=== PATIENT | female | born 1945 | race Caucasian/White ===

== ENCOUNTER 2022-03-31 03:23 | Emergency (ER) | payer MEDICARE ==
--- NOTE | 2022-03-31 03:48 | ED Physician Documentation ---
PD HPI ABD PAIN - Stated complaint Stated Complaint: ABD PX - Chief complaint Chief Complaint: Abd Pain - History obtained from History obtained from: Patient - History of Present Illness Timing - onset: Enter time (19:00), Last night (03/30/22) Timing - details: Abrupt onset Pain level now: 8 Quality: Pain Location: RUQ, Epigastric Radiation: Other (no radiation) Improved by: Other (no ameliorating factors) Worsened by: Other (no exacerbating factors) Associated symptoms: No: Fever, Nausea, Vomiting, Diarrhea, Constipation Similar symptoms before: Has not had sx before Recently seen: Not recently seen Review of Systems Constitutional: denies: Fever, Chills, Sweats Cardiac: reports: Reviewed and negative Respiratory: reports: Reviewed and negative GI: reports: Abdominal Pain, Abdominal Swelling (sensation of focal rigid ity/swelling across upper abdomen). denies: Nausea, Vomiting, Constipation, Diarrhea : denies: Dysuria, Frequency Skin: denies: Rash Musculoskeletal: reports: Reviewed and negative PD PAST MEDICAL HISTORY - Past Medical History Past Medical History: Yes Cardiovascular: Hypertension, High cholesterol Endocrine/Autoimmune: Type 2 diabetes - Past Surgical History Past Surgical History: Yes General: Appendectomy - Present Medications Home Medications: Ambulatory Orders Medication Instructions Recorded Confirmed Citalopram [CeleXA] 10 mg PO DAILY 03/31/22 03/31/22 Gabapentin [Neurontin] 300 mg PO DAILY 03/31/22 03/31/22 Glipizide [Glipizide Xl] 5 mg PO DAILY 03/31/22 03/31/22 Lisinopril/Hydrochlorothiazide 1 tab PO DAILY 03/31/22 03/31/22 [Zestoretic 20-12.5 mg Tablet] Metoprolol Succinate [Toprol Xl] 50 mg PO DAILY 03/31/22 03/31/22 QUEtiapine [SEROquel] 25 mg PO DAILY 03/31/22 03/31/22 Simvastatin [Zocor] 40 mg PO DAILY 03/31/22 03/31/22 oxyCODONE [Roxicodone] 5 - 10 mg PO Q6H PRN #14 tablet 03/31/22 - Allergies Allergies/Adverse Reactions: Allergies Allergy/AdvReac Type Severity Reaction Status Date / Time Penicillins Allergy Unknown Verified 03/31/22 03:33 - Living Situation Living Arrangement: reports: At home PD ED PE NORMAL - Vitals Vital signs reviewed: Yes - General General: Alert and oriented X 3, Well developed/nourished, Other (obvious painful distress) - HEENT HEENT: Moist mucous membranes - Cardiac Cardiac: RRR, No murmur - Respiratory Respiratory: No respiratory distress, Clear bilaterally - Abdomen Abdomen: Soft, Non distended, Other (mild TTP RUQ and epigastrium without rebound or guarding) - Back Back: No CVA TTP - Derm Derm: Normal color, Warm and dry, No rash Results - Vitals Vitals: Oxygen O2 Source Room air - EKG (time done) No standard instances Rate: Rate (enter#) (79) Rhythm: NSR [place]: Normal Intervals: Normal [place], RBBB QRS: Normal Ischemia: Normal ST segments - Labs Labs: Laboratory Tests 03/31/22 03/31/22 04:15 04:15 WBC 10.0 RBC 4.21 Hgb 13.2 Hct 40.1 MCV 95.2 MCH 31.4 H MCHC 32.9 RDW 13.0 Plt Count 193 MPV 10.1 Neut # (Auto) 8.1 H Lymph # (Auto) 1.0 L [place] # (Auto) 0.8 Eos # (Auto) 0.1 Baso # (Auto) 0.0 Absolute Nucleated RBC 0.00 Nucleated RBC % 0.0 Sodium 138 Potassium 4.5 Chloride 103 Carbon Dioxide 24 Anion Gap 11.0 BUN 20 Creatinine 0.9 Estimated GFR (MDRD) 61 L Glucose 194 H Calcium 10.2 Total Bilirubin 0.8 AST 19 ALT 16 Alkaline Phosphatase 50 Total Protein 7.3 Albumin 4.4 Globulin 2.9 Albumin/Globulin Ratio 1.5 Lipase 32 - Rads (name of study) RUQ US Radiology: Prelim report reviewed, See rad report PD MEDICAL DECISION MAKING - ED course Complexity details: reviewed results, re-evaluated patient, considered differential, d/w patient ED course: Presentation and test results are all consistent with biliary colic. She is afebrile and blood tests with unremarkable results including WBC and LFTs. Her US shows two gallstones, measuring up to 2cm diameter, with borderline GB wall thickness. She is in obvious discomfort on initial presentation but repeatedly expresses reluctance to receive any narcotics due to concern for side effect (such as N/V, drowsiness). We discussed non-narcotic options and she is given 15mg IV toradol, but she appears to be in discomfort that would not be adequately controlled with non-narcotics. I was able to eventually agree to 2mg IV morphine IV, and when she did not have any improvement with this, she is then given 4mg IV morphine. Finally, as she had no improvement with these medications, she was finally agreeable to IV dilaudid. She is given 1 mg IV dilaudid and reports excellent relief of her pain with this. She is AAOx3 on reevaluation, NAD, results reviewed, diagnosis of gallstones/biliary colic discussed, return precautions discussed. I advised her to follow up with a general surgeon as soon as can be arranged, and prescription for percocet is provided. At this time, no indications for admission or further observation, given that she is afebrile with unremarkable blood tests (including WBC and LFTs) and symptoms are controlled without sedation. Departure - Departure Disposition: 01 Home, Self Care Clinical Impression: Biliary colic Condition: Good Instructions: ED Gallstone W Biliary Colic Follow-Up: Rosa Wilkinson MD [Provider Admit Priv/Credential] - Prescriptions: oxyCODONE [Roxicodone] 5 - 10 mg PO Q6H PRN #14 tablet PRN Reason: Pain Comments: The ultrasound shows that you have two very large gallstones; these are almost certainly the cause of your abdominal pain. Your blood tests are unremarkable a nd the pain was controlled with a few doses of pain medication in the ER. At this point it is safe and appropriate to send you home, but you should follow up with a general surgeon. You can contact the surgeon that evaluated you for this problem before and see if they will evaluate you or if you need a new referral. If you need a new referral, you can contact your primary care provider for that. You can also try surgeon web content director for [facility], information is provided on these discharge sheets (if you contact Dr. Wilkinson's office, make sure that they take your insurance and ask if they require referral from your primary care provider). Discharge Date/Time: 03/31/22 10:33
[2022-03-31] MEDS ORDERED: MORPHINE 2 MG/ML CARPUJECT IVP STA ×2 (04:11→04:38)
[2022-03-31 04:21] LABS: BASOPHILS % (AUTO) 0.4 %; EOSINOPHILS # (AUTO) 0.1 10^3/uL (0.0-0.7); EOSINOPHILS % (AUTO) 0.9 %; HCT - HEMATOCRIT 40.1 % (37.0-47.0); HGB - HEMOGLOBIN 13.2 g/dL (12.0-16.0); LYMPHOCYTES % (AUTO) 9.7 %; MEAN CORPUSCULAR HEMOGLOBIN 31.4 pg (27.0-31.0); MEAN CORPUSCULAR HGB CONC 32.9 g/dL (32.0-36.0); MEAN CORPUSCULAR VOLUME 95.2 fL (81.0-99.0); MEAN PLATELET VOLUME 10.1 fL (7.9-10.8); MONOCYTES # (AUTO) 0.8 10^3/uL (0.0-1.0); MONOCYTES % (AUTO) 7.6 %; NEUTROPHILS # (AUTO) 8.1 10^3/uL (1.5-6.6); NEUTROPHILS % (AUTO) 80.9 %; PLT - PLATELET COUNT 193 10^3/uL (130-450); RED BLOOD COUNT 4.21 10^6/uL (4.20-5.40)
[2022-03-31 04:33] LABS: ALBUMIN 4.4 g/dL (3.2-5.5); ALBUMIN/GLOBULIN RATIO 1.5 (1.0-2.2); BILIRUBIN,TOTAL 0.8 mg/dL (0.2-1.0); CALCIUM 10.2 mg/dL (8.5-10.3); CREATININE 0.9 mg/dL (0.4-1.0); POTASSIUM 4.5 mmol/L (3.5-5.0); TOTAL PROTEIN 7.3 g/dL (6.7-8.2)
[2022-03-31 07:04] VITALS: BP 152/68
[2022-03-31] MEDS ORDERED: HYDROmorphone 1 MG/ML CARPUJECT IVP STA (07:49)
[2022-03-31] MEDS ORDERED: KETOROLAC 15 MG/ML VIAL IVP STA (08:08)
--- NOTE | 2022-03-31 10:11 | Ultrasound Report ---
PROCEDURE: Abdomen Limited INDICATIONS: RUQ pain TECHNIQUE: Real-time focused scanning was performed of the abdomen, with image documentation. COMPARISON: None FINDINGS: The liver is normal size and demonstrates mild, slightly heterogeneous hyperechogenicity t hroughout. No focal masses. The gallbladder is distended and contains nonmobile stones in the neck, one measuring up to 2.0 cm. T he wall is at the upper limits of normal in thickness measuring 3.1 mm. No discrete pericholecystic f luid seen. Negative sonographic Quinteros's per the technologist. No intrahepatic biliary dilatation. The visible portion of the common duct is normal caliber at 6 mm. The pancreas is normal. The distal pancreas is not seen. The right kidney is normal length. There is no hydronephrosis. IMPRESSION: 1. Cholelithiasis and equivocal findings for acute cholecystitis given borderline wall thickening. HI DA scan could be performed for further evaluation. 2. Mild hepatic steatosis. 3. Final interpretation concordant with preliminary report. Reviewed by: Angella Godoy MD on 03/31/2022 10:10 AM PDT Approved by: Angella Gdooy MD on 03/31/2022 10:10 AM PDT Station ID: [id number]
== END 2022-03-31 10:33 | disposition home or self-care (01) ==
LOC: ED 03:23
DX: K80.50 Calculus of bile duct without cholangitis or cholecystitis without obstruction (principal); I10 Essential (primary) hypertension; E11.9 Type 2 diabetes mellitus without complications; Z79.84 Long term (current) use of oral hypoglycemic drugs
CPT/HCPCS: 36415; 76705; 80053; 83690; 85025; 93005; 96374; 96375; 99283; 99284; J1170

== ENCOUNTER 2022-04-02 23:59 | Outpatient (CLI) | payer MEDICARE | END 2022-04-03 | disposition EMS.NT | LOC: EMS 23:59 | DX: R10.9 Unspecified abdominal pain (principal) ==

== ENCOUNTER 2022-04-05 05:05 | Outpatient (CLI) | payer MEDICARE | END 2022-04-05 05:06 | disposition EMS.NT | LOC: EMS 05:05 | DX: Z03.89 Encounter for observation for other suspected diseases and conditions ruled out (principal) ==

== ENCOUNTER 2023-09-01 13:06 | Outpatient (CLI) | payer MEDICARE | END 2023-09-01 13:07 | disposition critical access hospital (66) | LOC: EMS 13:06 | DX: R07.89 Other chest pain (principal); M54.6 Pain in thoracic spine; R20.8 Other disturbances of skin sensation; I44.0 Atrioventricular block, first degree; I45.10 Unspecified right bundle-branch block | CPT/HCPCS: A0425; A0427 ==

== ENCOUNTER 2023-09-01 13:32 | Emergency (ER) | payer MEDICARE ==
--- NOTE | 2023-09-01 13:48 | ED Physician Documentation ---
PD HPI CHEST PAIN - Stated complaint Stated Complaint: GLF/CHEST PX - Chief complaint Chief Complaint: Cardiac - History obtained from History obtained from: Patient, EMS - History of Present Illness Timing - details: Gradual onset Pain level max: 5 Pain level now: 0 Quality: Indigestion (burning) Location: Substernal Improved by: Antacids Worsened by: No: Exertion, Inspiration, Eating, Movement, Palpation, Position Associated symptoms: No: Shortness of air, Diaphoresis, Nausea, Vomiting, Feeling faint / dizzy, General Weakness, Palpitations, Cough Recently seen: Not recently seen - Additional information Additional information: Patient is a 78-year-old female brought in by EMS. History of atrial fibrillation with cardiac ablation. She states over the past few weeks she gets an intermittent burning pain to her chest. Usually resolved with Rolaids. She states that happened today when she was with her son so he called the ambulance. No fevers. No chills. No cough. No congestion. No lightheadedness, dizziness. She states she did trip in a hole on Thursday, fell but no injuries. No head strike. No loss of consciousness. No altered mental status. Denies being on any blood thinners. EMS states there her EKG showed a right bundle branch block which is chronic for the patient. She is asymptomatic currently. She states that she also occasionally has pain in her left forearm from the elbow down to the fifth digit. She describes this as a burning pain. Review of Systems Constitutional: denies: Fever, Chills Respiratory: denies: Cough GI: denies: Vomiting, Diarrhea, Hematemesis Skin: denies: Rash Musculoskeletal: denies: Neck pain, Back pain Neurologic: denies: Headache PD PAST MEDICAL HISTORY - Past Medical History Cardiovascular: Hypertension, High cholesterol Neuro: Peripheral neuropathy Endocrine/Autoimmune: Type 2 diabetes GI: Cholelithiasis : Renal insuffiency Psych: Depression, Anxiety - Past Surgical History Past Surgical History: Yes General: Appendectomy Ortho: Shoulder arthroplasty - Present Medications Home Medications: Ambulatory Orders Medication Instructions Recorded Confirmed Citalopram [CeleXA] 10 mg PO DAILY 03/31/22 09/01/23 Gabapentin [Neurontin] 600 mg PO DAILY 03/31/22 09/01/23 Glipizide [Glipizide Xl] 5 mg PO DAILY 03/31/22 09/01/23 Lisinopril/Hydrochlorothiazide 1 tab PO DAILY 03/31/22 09/01/23 [Zestoretic 20-12.5 mg Tablet] Metoprolol Succinate [Toprol Xl] 50 mg PO DAILY 03/31/22 09/01/23 QUEtiapine [SEROquel] 25 mg PO DAILY 03/31/22 09/01/23 Simvastatin [Zocor] 40 mg PO DAILY 03/31/22 09/01/23 Insulin Lispro [Humalog] 28 - 30 unit SUBQ BID 09/01/23 09/01/23 - Allergies Allergies/Adverse Reactions: Allergies Allergy/AdvReac Type Severity Reaction Status Date / Time Penicillins Allergy Unknown Verified 09/01/23 13:45 - Social History Does the pt smoke?: No Smoking Status: Never smoker Does the pt drink ETOH?: No Does the pt have substance abuse?: No - Immunizations Immunizations are current?: Yes - POLST Patient has POLST: No PD ED PE NORMAL - Vitals Vital signs reviewed: Yes - General General: Alert and oriented X 3, No acute distress - HEENT HEENT: PERRL, Moist mucous membranes - Neck Neck: Supple, no meningeal sign - Cardiac Cardiac: RRR, Strong equal pulses - Respiratory Respiratory: No respiratory distress, Clear bilaterally - Abdomen Abdomen: Soft, Non tender, Non distended - Derm Derm: Warm and dry - Extremities Extremities: Normal ROM s pain, No edema, No calf tenderness / cord - Neuro Neuro: Alert and oriented X 3, holter technician 2-12 intact, No motor deficit, No sensory deficit, Normal speech - Psych Psych: Normal mood, Normal affect Results - Vitals Vitals: Vital Signs - 24 hr 09/01/23 09/01/23 09/01/23 13:45 15:02 16:00 Temperature 37.1 C Heart Rate 81 83 82 Respiratory 14 18 12 Rate Blood Pressure 177/66 H 150/83 H 153/69 H O2 Saturation 97 96 96 Oxygen O2 Source Room air - EKG (time done) 1356 EKG releavant findings:: EKG personally interpreted by author of this note. Relevant findings are: Rate: Rate (enter#) (82) Rhythm: NSR [place]: Normal Intervals: Prolonged [place], RBBB Ischemia: Normal ST segments - Labs Labs: Laboratory Tests 09/01/23 09/01/23 14:06 14:06 WBC 8.9 RBC 4.30 Hgb 14.0 Hct 41.3 MCV 96.0 MCH 32.6 H MCHC 33.9 RDW 12.4 Plt Count 198 MPV 9.9 Neut # (Auto) 6.6 Lymph # (Auto) 1.2 L [place] # (Auto) 0.7 Eos # (Auto) 0.1 Baso # (Auto) 0.1 Absolute Nucleated RBC 0.00 Nucleated RBC % 0.0 Sodium 137 Potassium 4.6 H Chloride 106 Carbon Dioxide 25 Anion Gap 6.0 BUN 31 H Creatinine 1.1 Estimated GFR (MDRD) 48 L Glucose 191 H Calcium 10.0 Total Bilirubin 0.6 AST 22 ALT 20 Alkaline Phosphatase 42 Troponin I High Sens 852.3 H* Total Protein 6.6 Albumin 4.3 Globulin 2.3 Albumin/Globulin Ratio 1.9 Lipase 48 - Rads (name of study) cxr Relevant Findings:: Final report received, See rad report PD Medical Decision Making - ED course Complexity details: reviewed results, re-evaluated patient, considered differential, d/w patient, d/w labor relations consultant ED course: 78-year-old female with an NSTEMI. Given therapeutic Lovenox here. Took aspirin prior to arrival, full dose. Symptom-free here. No history of ACS. Will transfer to [facility] for further care. I spoke with Dr. Hodge, cardiology at [facility] in [place] who accepts in transfer. Also spoke with the hospitalist, Dr. Jackson, Who graciously accepts in transfer. COBRA forms completed. Patient transferred to [facility] in [place]. Departure - Departure Disposition: Transfer Acute Care Hosp Clinical Impression: NSTEMI (non-ST elevated myocardial infarction) Condition: Stable Forms: PCP List
--- NOTE | 2023-09-01 14:10 | XRAY Report ---
PROCEDURE: Chest 1V INDICATIONS: Chest Pain TECHNIQUE: One view of the chest was acquired. COMPARISON: None. FINDINGS: Surgical changes and devices: None. Lungs and pleura: No pleural effusions or pneumothorax. Lungs are clear. Mediastinum: Mediastinal contours appear normal. Heart size is normal. Bones and chest wall: No suspicious bony lesions. Overlying soft tissues appear unremarkable. IMPRESSION: No acute cardiopulmonary process. Reviewed by: Gladys Samson MD on 09/01/2023 2:09 PM [facility] Approved by: Gladys Samson MD on 09/01/2023 2:09 PM [facility] Station ID: [id number]
[2023-09-01 14:12] LABS: BASOPHILS # (AUTO) 0.1 10^3/uL (0.0-0.1); BASOPHILS % (AUTO) 0.7 %; EOSINOPHILS # (AUTO) 0.1 10^3/uL (0.0-0.7); EOSINOPHILS % (AUTO) 1.4 %; HCT - HEMATOCRIT 41.3 % (37.0-47.0); LYMPHOCYTES # (AUTO) 1.2 10^3/uL (1.5-3.5); LYMPHOCYTES % (AUTO) 13.8 %; MEAN CORPUSCULAR HEMOGLOBIN 32.6 pg (27.0-31.0); MEAN CORPUSCULAR HGB CONC 33.9 g/dL (32.0-36.0); MEAN PLATELET VOLUME 9.9 fL (7.9-10.8); MONOCYTES # (AUTO) 0.7 10^3/uL (0.0-1.0); MONOCYTES % (AUTO) 8.4 %; NEUTROPHILS # (AUTO) 6.6 10^3/uL (1.5-6.6); NEUTROPHILS % (AUTO) 74.9 %; PLT - PLATELET COUNT 198 10^3/uL (130-450); RED CELL DISTRIBUTION WIDTH 12.4 % (12.0-15.0); WHITE BLOOD COUNT 8.9 x10^3/uL (4.8-10.8)
[2023-09-01 14:26] LABS: ALBUMIN 4.3 g/dL (3.2-5.5); ALBUMIN/GLOBULIN RATIO 1.9 (1.0-2.2); BILIRUBIN,TOTAL 0.6 mg/dL (0.2-1.0); CREATININE 1.1 mg/dL (0.6-1.3); POTASSIUM 4.6 mmol/L (3.5-4.5); TOTAL PROTEIN 6.6 g/dL (6.4-8.9)
[2023-09-01 14:43] LABS: TROPONIN I HIGH SENSITIVITY 852.3 ng/L (2.3-14.8)
[2023-09-01] MEDS: ENOXAPARIN 100 MG/ML SYRINGE SUBQ STA (15:00)
[2023-09-01 15:03] VITALS: O2SAT 96
[2023-09-01] MEDS: LORazepam 2 MG/ML VIAL IVP STA (17:20)
[2023-09-01 17:45] VITALS: BP 113/80
== END 2023-09-01 17:55 | disposition short-term general hospital (02) ==
LOC: EDUNIT# → ED 13:32
DX: I21.4 Non-ST elevation (NSTEMI) myocardial infarction (principal); I10 Essential (primary) hypertension
CPT/HCPCS: 36415; 71045; 80053; 83690; 84484; 85025; 93005; 96372; 96374; 99285; J1650; J2060

== ENCOUNTER 2024-03-21 09:43 | Outpatient (CLI) | payer MEDICARE | END 2024-03-21 23:59 | disposition critical access hospital (66) | LOC: EMS 09:43 | DX: U07.1 COVID-19 (principal); R53.1 Weakness; R19.7 Diarrhea, unspecified | CPT/HCPCS: A0425; A0429 ==

== ENCOUNTER 2024-03-21 10:11 | Emergency (ER) | payer MEDICARE ==
--- NOTE | 2024-03-21 10:29 | ED Physician Documentation ---
PD HPI URI - Stated complaint Stated Complaint: GEN WEAKNESS - Chief complaint Chief Complaint: General - History obtained from History obtained from: Patient, EMS - History of Present Illness Timing - onset: How many days ago (5-6) Timing duration: Days (5-6) Timing details: Gradual onset Associated symptoms: Chills, Nasal congestion, Sore throat, Dry cough, Dyspnea. No: Fever, Bilateral edema Contributing factors: No: Sick contact (she states she lives alone and does not have visitors recently.) Similar symptoms before: Has not had sx before Review of Systems Constitutional: reports: Chills, Myalgias, Fatigue (unable to get up from bed herself today. Feeling lightheaded with near syncope.). denies: Fever Nose: reports: Rhinorrhea / runny nose, Congestion Throat: reports: Sore throat Cardiac: denies: Chest pain / pressure Respiratory: reports: Dyspnea, Cough. denies: Wheezing GI: reports: Nausea, Diarrhea. denies: Abdominal Pain, Vomiting, Bloody / black stool PD PAST MEDICAL HISTORY - Past Medical History Cardiovascular: Hypertension, High cholesterol Neuro: Peripheral neuropathy Endocrine/Autoimmune: Type 2 diabetes GI: Cholelithiasis : Renal insuffiency HEENT: None Psych: Depression, Anxiety - Past Surgical History Past Surgical History: Yes General: Appendectomy Ortho: Shoulder arthroplasty - Present Medications Home Medications: Ambulatory Orders Medication Instructions Recorded Confirmed Citalopram [CeleXA] 10 mg PO DAILY 03/31/22 09/01/23 Gabapentin [Neurontin] 600 mg PO DAILY 03/31/22 09/01/23 Glipizide [Glipizide Xl] 5 mg PO DAILY 03/31/22 09/01/23 Lisinopril/Hydrochlorothiazide 1 tab PO DAILY 03/31/22 09/01/23 [Zestoretic 20-12.5 mg Tablet] Metoprolol Succinate [Toprol Xl] 50 mg PO DAILY 03/31/22 09/01/23 QUEtiapine [SEROquel] 25 mg PO DAILY 03/31/22 09/01/23 Simvastatin [Zocor] 40 mg PO DAILY 03/31/22 09/01/23 Insulin Lispro [Humalog] 28 - 30 unit SUBQ BID 09/01/23 09/01/23 Albuterol Sulf [Ventolin Hfa 2 - 3 puffs INH Q4HR PRN #1 each 03/21/24 Inhaler] Doxycycline Hyclate 100 mg PO BID 7 Days #10 cap 03/21/24 Ondansetron Odt [Zofran] 4 mg TL Q6H PRN #10 tablet 03/21/24 Promethazine [Phenergan] 25 mg PO Q6H PRN #10 tab 03/21/24 - Allergies Allergies/Adverse Reactions: Allergies Allergy/AdvReac Type Severity Reaction Status Date / Time Penicillins Allergy Unknown Verified 03/21/24 10:23 - Social History Does the pt smoke?: No Smoking Status: Never smoker Does the pt drink ETOH?: No Does the pt have substance abuse?: No - Immunizations Immunizations are current?: Yes - POLST Patient has POLST: No PD ED PE NORMAL - Vitals Vital signs reviewed: Yes - General General: Alert and oriented X 3, No acute distress, Well developed/nourished - HEENT HEENT: Atraumatic, Pharynx benign. No: Moist mucous membranes - Neck Neck: Supple, no meningeal sign, No adenopathy - Cardiac Cardiac: No murmur - Respiratory Respiratory: No respiratory distress. No: Clear bilaterally (mild exp wheezing and prolonged exp phase. No coarse nor wet sounds. ) - Abdomen Abdomen: Soft, Non tender - Derm Derm: Normal color, Warm and dry - Extremities Extremities: Normal ROM s pain, No edema - Neuro Neuro: Alert and oriented X 3, No motor deficit, Normal speech Results - Vitals Vitals: Vital Signs - 24 hr 03/21/24 03/21/24 03/21/24 10:17 12:22 14:00 Temperature 35.2 C L 36.5 C Heart Rate 100 100 100 Respiratory 18 16 18 Rate Blood Pressure 156/79 H 150/80 H 140/90 H O2 Saturation 100 95 98 03/21/24 14:41 Temperature Heart Rate 100 Respiratory Rate Blood Pressure O2 Saturation Oxygen O2 Source Room air - Labs Labs: Laboratory Tests 03/21/24 03/21/24 03/21/24 10:27 10:40 10:40 WBC 2.8 L RBC 4.06 L Hgb 12.7 Hct 37.9 MCV 93.3 MCH 31.3 H MCHC 33.5 RDW 11.9 L Plt Count 143 MPV 10.2 Neut # (Auto) 2.1 Lymph # (Auto) 0.3 L [place] # (Auto) 0.3 Eos # (Auto) 0.0 Baso # (Auto) 0.0 Absolute Nucleated RBC 0.00 Nucleated RBC % 0.0 Manual Slide Review Indicated RBC Morph Micro Appear 1+ ANISOCYTOSIS Sodium 135 Potassium 3.8 Chloride 105 Carbon Dioxide 17 L Anion Gap 13.0 BUN 12 Creatinine 0.8 Estimated GFR (MDRD) 69 L Glucose 203 H Lactic Acid Calcium 9.0 Magnesium 1.4 L Total Bilirubin 0.8 AST 13 ALT 12 Alkaline Phosphatase 41 L Total Protein 6.2 L Albumin 3.8 Globulin 2.4 Albumin/Globulin Ratio 1.6 Lipase 20 Urine Color Urine Clarity Urine pH Ur Specific [place] Urine Protein Urine Glucose (UA) Urine Ketones Urine Occult Blood Urine Nitrite Urine Bilirubin Urine Urobilinogen Ur Leukocyte Esterase Urine RBC Urine WBC Urine WBC Clumps Ur Squamous Epith Cells Urine Bacteria Ur Microscopic Review Urine Culture Comments Nasal Adenovirus (PCR) NOT DETECTED Nasal B. parapertussis DNA (PCR) NOT DETECTED Nasal Coronavir 229E PCR NOT DETECTED Nasal Coronavir HKU1 PCR NOT DETECTED Nasal Coronavir NL63 PCR NOT DETECTED Nasal Coronavir OC43 PCR NOT DETECTED Nasal Enterovir/Rhinovir PCR NOT DETECTED Nasal Influenza B PCR NOT DETECTED Nasal Influenza A PCR NOT DETECTED Nasal Parainfluen 1 PCR NOT DETECTED Nasal Parainfluen 2 PCR NOT DETECTED Nasal Parainfluen 3 PCR NOT DETECTED Nasal Parainfluen 4 PCR NOT DETECTED Nasal RSV (PCR) NOT DETECTED Nasal B.pertussis DNA PCR NOT DETECTED Nasal C.pneumoniae (PCR) NOT DETECTED Arian Human Metapneumo PCR NOT DETECTED Nasal M.pneumoniae (PCR) NOT DETECTED Nasal SARS-CoV-2 (PCR) DETECTED A 03/21/24 03/21/24 10:40 14:40 WBC RBC Hgb Hct MCV MCH MCHC RDW Plt Count MPV Neut # (Auto) Lymph # (Auto) [place] # (Auto) Eos # (Auto) Baso # (Auto) Absolute Nucleated RBC Nucleated RBC % Manual Slide Review RBC Morph Micro Appear Sodium Potassium Chloride Carbon Dioxide Anion Gap BUN Creatinine Estimated GFR (MDRD) Glucose Lactic Acid 1.2 Calcium Magnesium Total Bilirubin AST ALT Alkaline Phosphatase Total Protein Albumin Globulin Albumin/Globulin Ratio Lipase Urine Color LIGHT YELLOW Urine Clarity CLEAR Urine pH 6.0 Ur Specific [place] <=1.005 Urine Protein NEGATIVE Urine Glucose (UA) NEGATIVE Urine Ketones TRACE Urine Occult Blood NEGATIVE Urine Nitrite POSITIVE H Urine Bilirubin NEGATIVE Urine Urobilinogen 0.2 (NORMAL) Ur Leukocyte Esterase NEGATIVE Urine RBC 0-5 Urine WBC 0-3 Urine WBC Clumps PRESENT Ur Squamous Epith Cells RARE Squamous Urine Bacteria Moderate H Ur Microscopic Review INDICATED Urine Culture Comments INDICATED Nasal Adenovirus (PCR) Nasal B. parapertussis DNA (PCR) Nasal Coronavir 229E PCR Nasal Coronavir HKU1 PCR Nasal Coronavir NL63 PCR Nasal Coronavir OC43 PCR Nasal Enterovir/Rhinovir PCR Nasal Influenza B PCR Nasal Influenza A PCR Nasal Parainfluen 1 PCR Nasal Parainfluen 2 PCR Nasal Parainfluen 3 PCR Nasal Parainfluen 4 PCR Nasal RSV (PCR) Nasal B.pertussis DNA PCR Nasal C.pneumoniae (PCR) Arian Human Metapneumo PCR Nasal M.pneumoniae (PCR) Nasal SARS-CoV-2 (PCR) - Rads (name of study) chest xray Relevant Findings:: Prelim report reviewed (bilateral periilar thickening c/w viral infection. ), EMP independent interpretation of test PD Medical Decision Making - ED course Complexity details: reviewed results (is COVID positive to account for mainly her symptoms base. Has had increased coughing, with CXR looking viral but still conisder some bacterial bronchitis with the increasing sympotoms after 6 days. ), re-evaluated patient (still feeling generally ill and weak, but had improved HR and BP and is able to walk to and fro bathroom. Urinating couple of times now in ER. She was concerned about going home, but I don't see admission criteria for her at this point. Taking PO fluids and snack. ), considered differential (sounds viral/flu-like illness with dehdration and general weakness. Good sats. HR is mild tachy and BP initially slightly low. Can get labs and CXR, give fluids and meds. ), d/w patient, d/w family (her son was in room on recheck and after fluids/meds. I discussed with pt as he as there, the results and impressions of her testing, and not having admission driteria per se (she feels that she did not want to go home). ) Departure - Departure Disposition: 01 Home, Self Care Clinical Impression: Dehydration, Generalized weakness, COVID-19 Cough Qualifiers: Cough type: acute Qualified Code(s): R05.1 - Acute cough Condition: Stable Record reviewed to determine appropriate education?: Yes Instructions: ED Viral Syndrome Prescriptions: Albuterol Sulf [Ventolin Hfa Inhaler] 2 - 3 puffs INH Q4HR PRN #1 each PRN Reason: Shortness Of Air/Wheezing Doxycycline Hyclate 100 mg PO BID 7 Days #10 cap Promethazine [Phenergan] 25 mg PO Q6H PRN #10 tab PRN Reason: Nausea / Vomiting Ondansetron Odt [Zofran] 4 mg TL Q6H PRN #10 tablet PRN Reason: Nausea / Vomiting Comments: Your viral panel test was positive for COVID. This would account for a large part of the general weakness and aches and nausea with less appetite. Your last intake has led to under hydration which compounds some of the general symptoms. We have given you IV fluids for improved hydration and volume replacement. Your chest x-ray showed some very mild infiltrates in the central lung area which is common with a COVID type infection. They can be secondary bacterial infection at times as well. Let with that in mind, I would add an antibiotic for you in case there is some bacterial component. Otherwise symptom treatment with ondansetron if needed for nausea or promethazine if that is not as effective. Doxycycline antibiotic for potential bronchitis/pneumonia. Add albuterol inhaler 2 puffs 4 times daily over the next several days to week to help with breathing and coughing as well. Continue with good hydration of small frequent fluids and try to have some food intake. I would anticipate improvement soon given the duration of your symptoms having been already 5 or 6 days. You should be improving incrementally over the next several days. I sent your prescriptions to preferred pharmacy. I realize you are feeling well ill and generally weak. However there does not appear to be criteria for admission to the hospital at this point. Return if worsening. Forms: PCP List Discharge Date/Time: 03/21/24 15:13
[2024-03-21 10:48] LABS: EOSINOPHILS % (AUTO) 0.4 %; HCT - HEMATOCRIT 37.9 % (37.0-47.0); HGB - HEMOGLOBIN 12.7 g/dL (12.0-16.0); LYMPHOCYTES # (AUTO) 0.3 10^3/uL (1.5-3.5); LYMPHOCYTES % (AUTO) 10.9 %; MEAN CORPUSCULAR HEMOGLOBIN 31.3 pg (27.0-31.0); MEAN CORPUSCULAR HGB CONC 33.5 g/dL (32.0-36.0); MEAN CORPUSCULAR VOLUME 93.3 fL (81.0-99.0); MEAN PLATELET VOLUME 10.2 fL (7.9-10.8); MONOCYTES # (AUTO) 0.3 10^3/uL (0.0-1.0); NEUTROPHILS # (AUTO) 2.1 10^3/uL (1.5-6.6); PLT - PLATELET COUNT 143 10^3/uL (130-450); RED BLOOD COUNT 4.06 10^6/uL (4.20-5.40); RED CELL DISTRIBUTION WIDTH 11.9 % (12.0-15.0); WHITE BLOOD COUNT 2.8 x10^3/uL (4.8-10.8)
[2024-03-21 10:50] LABS: SLIDE REVIEW? Indicated
[2024-03-21 10:58] LABS: MAGNESIUM 1.4 mg/dL (1.7-2.3)
--- NOTE | 2024-03-21 11:01 | XRAY Report ---
PROCEDURE: Chest 1V INDICATIONS: cough and dyspnea TECHNIQUE: One view of the chest was acquired. COMPARISON: Chest radiograph on September 01, 2023. FINDINGS: Overlying EKG leads limit evaluation. Surgical changes and devices: Partially visualized right shoulder arthroplasty. Lungs and pleura: No pleural effusions or pneumothorax. Mild bilateral perihilar bronchial wall thic kening. No focal pulmonary consolidation. Mediastinum: Mediastinal contours appear normal. Heart size is normal. Aortic arch is calcified, in dicating atherosclerosis. Bones and chest wall: No suspicious bony lesions. Overlying soft tissues appear unremarkable. IMPRESSION: Mild bilateral perihilar bronchial wall thickening which may be secondary to reactive airways disease and/or viral pneumonia. No focal pulmonary consolidation. Reviewed by: Lizandro Foy MD on 03/21/2024 10:00 AM [facility]MAN Approved by: Lizandro Foy MD on 03/21/2024 10:00 AM COLEMAN Station ID: [id number]
[2024-03-21 11:04] LABS: ALBUMIN 3.8 g/dL (3.2-5.5); ALBUMIN/GLOBULIN RATIO 1.6 (1.0-2.2); BILIRUBIN,TOTAL 0.8 mg/dL (0.2-1.0); CREATININE 0.8 mg/dL (0.6-1.3); POTASSIUM 3.8 mmol/L (3.5-4.5); TOTAL PROTEIN 6.2 g/dL (6.4-8.9)
[2024-03-21] MEDS: SODIUM CHLORIDE 0.9% 1,000 ML IV STA (11:06)
[2024-03-21] MEDS: ONDANSETRON 4 MG/2 ML VIAL IVP STA (11:06)
[2024-03-21 11:16] LABS: RBC MORPHOLOGY (MULTIPLE) 1+ ANISOCYTOSIS (NORMAL)
[2024-03-21 11:37] LABS: B. PARAPERTUSSIS- RESP PCR PAN NOT DETECTED; B. PERTUSSIS- RESP PCR PANEL NOT DETECTED; C. PNEUMONIAE- RESP PCR PANEL NOT DETECTED; CORONAVIRUS 229E-RESP PCR NOT DETECTED; CORONAVIRUS HKU1-RESP PCR NOT DETECTED; CORONAVIRUS NL63-RESP PCR NOT DETECTED; CORONAVIRUS OC43-RESP PCR NOT DETECTED; HUMAN METAPNEUMOVIRUS NOT DETECTED; INFLUENZA A- RESP PCR PANEL NOT DETECTED; INFLUENZA B - RESP PCR PANEL NOT DETECTED; M. PNEUMONIAE- RESP PCR PANEL NOT DETECTED; PARAINFLUENZA VIRUS 1 NOT DETECTED; PARAINFLUENZA VIRUS 2 NOT DETECTED; PARAINFLUENZA VIRUS 3 NOT DETECTED; PARAINFLUENZA VIRUS 4 NOT DETECTED; RHINOVIRUS/ENTEROVIRUS NOT DETECTED; RSV- RESP PCR PANEL NOT DETECTED
[2024-03-21 11:39] LABS: SARS-CoV-2 -RESP PCR PANEL DETECTED
[2024-03-21] MEDS: DROPERIDOL 5 MG/2 ML VIAL IVP STA (12:41)
[2024-03-21] MEDS: DOXYCYCLINE 100 MG TABLET PO STA (13:09)
[2024-03-21] MEDS: LACTATED RINGERS 1,000 ML IV STA (13:09)
[2024-03-21] MEDS: MAGNESIUM SULFATE 2 GRAM 2 GM/50 ML BAG IV ONE (13:09)
[2024-03-21 14:39] VITALS: BP 140/90; O2SAT 98
[2024-03-21] MEDS: ALBUTEROL 1 PUFF INH STA (14:41)
[2024-03-21 14:44] LABS: BILIRUBIN,URINE NEGATIVE (NEGATIVE); CLARITY,URINE CLEAR (CLEAR); GLUCOSE, URINE (UA) NEGATIVE (NEGATIVE); KETONES,URINE (UA) TRACE mg/dL (NEGATIVE); LEUKOCYTE ESTERASE, URINE NEGATIVE (NEGATIVE); NITRITE,URINE POSITIVE (NEGATIVE); OCCULT BLOOD,URINE NEGATIVE (NEGATIVE); PROTEIN,URINE NEGATIVE (NEGATIVE); UROBILINOGEN,URINE 0.2 (NORMAL) E.U./dL (NORMAL)
[2024-03-21 14:55] LABS: BACTERIA,URINE Moderate /HPF (None Seen); RBC,URINE 0-5 /HPF (0-5); SQUAMOUS EPITHELIAL CELL,UR RARE Squamous (<= Few); WBC CLUMPS,URINE PRESENT; WBC,URINE 0-3 /HPF (0-5)
--- NOTE | 2024-03-24 00:02 | ED Physician Documentation ---
ED Addendum - Addendum Addendum: 03/24/24 00:01 Patient's urine is positive for E. coli. Pansensitive, not tested against doxycycline, we will add Macrobid to her home antibiotic regiment. Prescription sent to the patient's pharmacy of choice. Nursing will contact the patient to inform her of the additional antibiotic. Departure - Departure Disposition: 01 Home, Self Care Clinical Impression: Dehydration, Generalized weakness, COVID-19, UTI (urinary tract infection) Cough Qualifiers: Cough type: acute Qualified Code(s): R05.1 - Acute cough Condition: Stable Instructions: ED Viral Syndrome Prescriptions: Albuterol Sulf [Ventolin Hfa Inhaler] 2 - 3 puffs INH Q4HR PRN #1 each PRN Reason: Shortness Of Air/Wheezing Doxycycline Hyclate 100 mg PO BID 7 Days #10 cap Nitrofurantoin [Macrobid] 100 mg PO BID #10 cap Promethazine [Phenergan] 25 mg PO Q6H PRN #10 tab PRN Reason: Nausea / Vomiting Ondansetron Odt [Zofran] 4 mg TL Q6H PRN #10 tablet PRN Reason: Nausea / Vomiting Comments: Your viral panel test was positive for COVID. This would account for a large part of the general weakness and aches and nausea with less appetite. Your last intake has led to under hydration which compounds some of the general symptoms. We have given you IV fluids for improved hydration and volume replacement. Your chest x-ray showed some very mild infiltrates in the central lung area which is common with a COVID type infection. They can be secondary bacterial infection at times as well. Let with that in mind, I would add an antibiotic for you in case there is some bacterial component. Otherwise symptom treatment with ondansetron if needed for nausea or promethazine if that is not as effective. Doxycycline antibiotic for potential bronchitis/pneumonia. Add albuterol inhaler 2 puffs 4 times daily over the next several days to week to help with breathing and coughing as well. Continue with good hydration of small frequent fluids and try to have some food intake. I would anticipate improvement soon given the duration of your symptoms having been already 5 or 6 days. You should be improving incrementally over the next several days. I sent your prescriptions to preferred pharmacy. I realize you are feeling well ill and generally weak. However there does not appear to be criteria for admission to the hospital at this point. Return if worsening. Forms: PCP List Discharge Date/Time: 03/21/24 15:13
== END 2024-03-21 15:13 | disposition home or self-care (01) ==
LOC: EDUNIT# → ED 10:11
DX: U07.1 COVID-19 (principal); E86.0 Dehydration; N39.0 Urinary tract infection, site not specified; B96.20 Unspecified Escherichia coli [E. coli] as the cause of diseases classified elsewhere; I10 Essential (primary) hypertension; E78.00 Pure hypercholesterolemia, unspecified; E11.42 Type 2 diabetes mellitus with diabetic polyneuropathy; Z79.899 Other long term (current) drug therapy; Z79.84 Long term (current) use of oral hypoglycemic drugs; Z79.4 Long term (current) use of insulin
CPT/HCPCS: 36415; 71045; 80053; 81001; 83605; 83690; 83735; 85025; 87077; 87086; 87181; 87633; 94640; 94664; 96361; 96365; 96375; 99284; A9270; J7120; 81003